=== PATIENT | female | born 1955 | race Two or more races ===

== ENCOUNTER 2025-06-03 11:52 | Emergency (ER) | payer OTHER ==
[~2025-06-03] VITALS: Ht 152.4 cm; Wt 90.7 kg
[2025-06-03] MEDS ORDERED: METFORMIN HCL500 MG PO (12:47)
[2025-06-03] MEDS ORDERED: ELIQUIS2.5 MG PO (12:48)
[2025-06-03] MEDS ORDERED: CLEOCIN HCL300 MG PO (12:50)
[2025-06-03] MEDS ORDERED: MORPHINE SULFATE 4 MG/ML CARTRIDGE IV STA (13:27)
[2025-06-03] MEDS ORDERED: 0.9 % SODIUM CHLORIDE 1,000 ML IV SCH (13:30)
[2025-06-03] MEDS ORDERED: KETOROLAC TROMETHAMINE 30 MG VIAL ONE (13:43)
[2025-06-03] MEDS ORDERED: KETOROLAC TROMETHAMINE 30 MG VIAL IV ONE (14:15)
[2025-06-03 15:10] LABS: BASO % 0.4 % (0.1-1.2); EOS # 0.01 (0.04-0.54); EOS % 0.1 % (0.7-7.0); LYMPH # 1.21 (1.18-3.74); LYMPH % 9.2 % (19.3-53.1); MEAN PLATELET VOLUME 11.00 fl (9.4-12.4); MONO # 0.53 (0.24-0.82); MONO % 4.0 % (4.7-12.5); NEUT # 11.37 (1.56-6.13); NEUT % 85.9 % (34.0-71.1); RED CELL DISTRIBUTION WIDTH 12.9 % (11.6-14.4)
[2025-06-03 15:17] LABS: INR 1.04
[2025-06-03 15:19] LABS: D DIMER 2.1 MG/L
[2025-06-03] MEDS ORDERED: TRAMADOL HCL50 MG PO (15:53)
[2025-06-03 15:55] LABS: ALT/SGPT 34.0 U/L (12-78); AST/SGOT 21.0 U/L (15-37); BILIRUBIN TOTAL 0.7 mg/dL (0.3-1.2); BUN CREA RATIO 23.0 (7.0-25.0); CREATININE SERUM 0.87 mg/dL (0.55-1.02); GFR 64.37; GLOBULINA 3.5 G/DL (2.4-3.5); GLUCOSE FASTING 145.0 mg/dL (65-100); OSMOLALITY SERUM 286.0 MOSM/KG (275-295)
== END 2025-06-03 17:54 | disposition home or self-care (01) ==
LOC: ER 11:53
PROVIDERS: Physician Assistant Medical
DX: S42.391A Other fracture of shaft of right humerus, initial encounter for closed fracture (principal); W19.XXXA Unspecified fall, initial encounter; Y93.89 Activity, other specified; Y92.098 Other place in other non-institutional residence as the place of occurrence of the external cause; Y99.8 Other external cause status; E11.9 Type 2 diabetes mellitus without complications; Z79.84 Long term (current) use of oral hypoglycemic drugs; Z88.0 Allergy status to penicillin